=== PATIENT | female | born 1965 | race Caucasian/White ===

== ENCOUNTER 2017-07-13 06:47 | Day surgery (SDC) | payer BC ==
[2017-07-13] MEDS ORDERED: LR 1,000 ML IV ONE (07:35)
[2017-07-13] MEDS ORDERED: LIDOCAINE 1% 2 ML INJ ID PRN (07:35)
--- NOTE | 2017-07-13 08:20 | PDGENHP ---
History & Physical Chief Complaint: colon screen History of Present Illness: colon screen Pertinent Past, Social, Family History: reviewed Relevant Physical Exam: nad. abd s/nt/nd Cardiorespiratory Assessment: rrr, ctab
--- NOTE | 2017-07-13 08:26 | PDANEPAE ---
ANE History of Present Illness 51 year old for colonoscopy ANE Past Medical History - Cardiovascular History Hx Hypertension: No Hx Arrhythmias: No Hx Chest Pain: No Hx Coronary Artery / Peripheral Vascular Disease: No Hx CHF / Valvular Disease: No Hx Palpitations: No Cardiovascular History Comment: one episode of fainting with low blood pressure 18 years ago - Pulmonary History Hx COPD: No Hx Asthma/Reactive Airway Disease: No Hx Recent Upper Respiratory Infection: No Hx Oxygen in Use at Home: No Hx Sleep Apnea: No Sleep Apnea Screening Result - Last Documented: Negative - Neurologic History Hx Cerebrovascular Accident: No Hx Seizures: No Hx Dementia: No Neurologic History Comment: concussion 3years after a fall. Bipolar - Endocrine History Hx Diabetes: No - Renal History Hx Renal Disorders: No - Liver History Hx Hepatic Disorders: No - Neurological & Psychiatric Hx Hx Neurological and Psychiatric Disorders: Yes Neurological / Psychiatric History Comment: bipolar disorder - Cancer History Hx Cancer: No - Congenital Disorder History Hx Congenital Disorders: No - GI History Hx Gastrointestinal Disorders: Yes Gastrointestinal History Comment: irritable bowel and constipation - Chronic Pain History Chronic Pain: No - Surgical History Prior Surgeries: breast reduction 1996 ANE Review of Systems Review of systems is: negative Review of Systems: - Exercise capacity METS (RN): 6 METS ANE Patient History - Allergies Allergies/Adverse Reactions: No Known Allergies Allergy (Verified 07/13/17 07:56) - Home Medications Home Medications: Elidel PRN 07/13/17 [Last Taken 07/12/17 22:30] Escitalopram Oxalate [Lexapro] 20 mg PO DAILY 07/13/17 [Last Taken 07/13/17 06: 00] LORAZEPAM 1 tab PO DAILY AT 9PM 07/13/17 [Last Taken 07/12/17 22:00] OXcarbazepine 0.5 tab PO DAILY AT 6AM 07/13/17 [Last Taken 07/13/17 06:00] OXcarbazepine 1.5 tab PO DAILY AT 9PM 07/13/17 [Last Taken 07/12/17 22:00] - NPO status NPO Since - Liquids (Date): 07/12/17 NPO Since - Liquids (Time): 22:45 NPO Since - Solids (Date): 07/12/17 NPO Since - Solids (Time): 07:30 - Smoking Hx Smoking Status: Never smoked - Alcohol Use Alcohol Use: Occasionally - Family Anes Hx Family Hx Anesthesia Complications: mother has postop nausea also ANE Labs/Vital Signs - Vital Signs Blood Pressure: 111/86 Heart Rate: 58 Respiratory Rate: 16 O2 Sat (%): 95 Height: 165.1 cm Weight: 76.204 kg ANE Physical Exam - Airway Neck exam: FROM Mallampati Score: Class 1 Mouth exam: normal dental/mouth exam - Pulmonary Pulmonary: no respiratory distress - Cardiovascular Cardiovascular: regular rate and rhythym - ASA Status ASA Status: II ANE Anesthesia Plan Anesthesia Plan: MAC
[2017-07-13] MEDS ORDERED: MIDAZOLAM 2 MG/2 ML VIAL IVP ONE (08:27)
[2017-07-13] MEDS ORDERED: fentaNYL 100 MCG/2 ML INJ ONE (08:36)
[2017-07-13] MEDS ORDERED: PROPOFOL 200 MG/20 ML VIAL ONE (08:36)
[2017-07-13] MEDS ORDERED: PROMETHAZINE HCL 25 MG/ML INJ IVP PRN (08:56)
[2017-07-13] MEDS ORDERED: NALOXONE HCL 0.4 MG/ML INJ IVP PRN (08:56)
--- NOTE | 2017-07-13 09:16 | POSTANESTH ---
Post Anesthetic Evaluation Cardiovascular Status: Normal, Stable Respiratory Status: Normal, Stable, Other, See Comment Level of Consciousness/Mental Status: Can Participate in Eval Pain Control: Adequate, Prn Tx Ordered Nausea/Vomiting Control: Adequate, Prn Tx Ordered Complications Possibly Related to Anesthesia: None Noted
--- NOTE | 2017-07-13 09:18 | GIREPORT ---
Formerly [facility] Surgical Services - Endoscopy Department Patient Name: Lissette Howard Procedure Date: 07/13/2017 8:27 AM Patient Type: Outpatient Attending / ER Physician: Librado Messer MD Procedure: Colonoscopy Indications: Screening for colorectal malignant neoplasm Providers: Librado Messer MD Medicines: Propofol per Anesthesia Complications: No immediate complications. Description of Procedure: After obtaining informed consent, the scope was passed under direct vision. Throughout the proce dure, the patient's blood pressure, pulse, and oxygen saturations were monitored continuously. The Colonoscope with irrigation channel was introduced through the anus and advanced to the terminal ileum, with identification of the appendiceal orifice and IC valve. The colonoscopy was performe d without difficulty. The patient tolerated the procedure well. The quality of the bowel preparati on was excellent. The terminal ileum, ileocecal valve, appendiceal orifice, and rectum were photogr aphed. Findings: The terminal ileum appeared normal. A 7 mm polyp was found in the hepatic flexure. The polyp was flat. The polyp was removed with a cold snare. Resection and retrieval were complete. A 3 mm polyp was found in the sigmoid colon. The polyp was sessile. The polyp was removed with a cold snare. Resection and retrieval were complete. A 2 mm polyp was found in the rectum. The polyp was sessile. The polyp was removed with a cold b iopsy forceps. Resection and retrieval were complete. A 6 mm polyp was found in the rectum. The polyp was sessile. The polyp was removed with a cold s nare. Resection and retrieval were complete. Internal hemorrhoids were found. Estimated Blood Loss: Estimated blood loss: none. Post Op Diagnosis: - The examined portion of the ileum was normal. - One 7 mm polyp at the hepatic flexure, removed with a cold snare. Res ected and retrieved. - One 3 mm polyp in the sigmoid colon, removed with a cold snare. Resec bridger and retrieved. - One 2 mm polyp in the rectum, removed with a cold biopsy forceps. Res ected and retrieved. - One 6 mm polyp in the rectum, removed with a cold snare. Resected and retrieved. - Internal hemorrhoids. Recommendation: - Patient has a contact number available for emergencies. The signs and symptoms of potential delayed complications were discussed with the pat ient. Return to normal activities tomorrow. Written discharge instructions we re provided to the patient. - Resume previous diet. - Continue present medications. - Repeat colonoscopy for surveillance based on pathology results. - If 1 or 2 polyps are adenomas the repeat colonoscopy in 5 years. If 3 or 4 polyps are adenomas then repeat colonoscopy in 3 years. - Colonoscopy was easy to advance to cecum. Could do future procedures in endoscopy center with conscious sedation. - Await pathology results. - Thank you for allowing me to participate in the care of this patient. Attending Participation: I personally performed the entire procedure. I personally performed the entire procedure without the assistance of a fellow, resident or manager surgical. Librado Messer MD Librado Messer MD 07/13/2017 9:18:36 AM Number of Addenda: 0 Note Initiated On: 07/13/2017 8:27 AM Total Procedure Duration Time 0 hours 19 minutes 14 seconds [email or web address]
[2017-07-13 09:45] VITALS: TEMP 97.3
[2017-07-13 09:47] VITALS: PULSE 64; RESP 19
[2017-07-13 09:59] VITALS: O2SAT 95
[2017-07-13 10:06] VITALS: BP 121/72
== END 2017-07-13 10:29 | disposition home or self-care (01) ==
LOC: FSGY 06:47
PROVIDERS: ATTEND Internal Medicine
DX: Z12.11 Encounter for screening for malignant neoplasm of colon (principal); D12.5 Benign neoplasm of sigmoid colon; D12.8 Benign neoplasm of rectum; D12.2 Benign neoplasm of ascending colon
CPT/HCPCS: J2250; J2704; J3010